=== PATIENT | female | born 1995 | race American Indian/Alaskan Native ===

== ENCOUNTER 2023-12-26 13:04 | Emergency (ER) | payer SELFPAY ==
[~2023-12-26] VITALS: Ht 170.2 cm; Wt 87.0 kg
[~2023-12-26 13:04] MED LIST: HYDROCODON-ACE1 EA11 PO
--- OUTSIDE RECORDS SUMMARY | 2023-12-26 13:06 | XMS ---
PreManage Notification: ORTIZ KHOURY Security E Tailer Events No recent Security Events currently on file CRITERIA MET - [facility] - 2 Visits in 30 Days CARE PROVIDERS There are no care providers on record at this time. Silvia has no Care Guidelines for this patient. [facility] V[facility] (12 [address] [facility] NOTE: Visits indicate total known visits. ED/C VISIT TRACKING (12 MO.) [facility] COMPLAINT: - BACK PAIN 12/24/2023 10:02 [facility] [place] TYPE: Emergency COMPLAINT: - LOWER BACK PAIN INPATIENT VISIT TRACKING (12 MO.) No inpatient visits to display in this time frame [email or web address]
[2023-12-26] MEDS ORDERED: OXYCODONE HCL5 MG PO (15:24)
[2023-12-26] MEDS ORDERED: HYDROmorphone HCL 2 MG/ML VIAL IM ONE (15:30)
[2023-12-26] MEDS ORDERED: ACETAMINOPHEN 500 MG TAB PO ONE (15:30)
[2023-12-26 16:34] VITALS: BP 137/79
== END 2023-12-26 16:35 | disposition home or self-care (01) ==
LOC: ED 13:04
DX: S32.029A Unspecified fracture of second lumbar vertebra, initial encounter for closed fracture (principal); W10.9XXA Fall (on) (from) unspecified stairs and steps, initial encounter
CPT/HCPCS: A9270; J1170